=== PATIENT | female | born 1990 | race Two or more races ===

== ENCOUNTER 2024-01-28 05:54 | Emergency (ER) | payer MEDICAID, OTHER ==
[~2024-01-28] VITALS: Ht 165.1 cm; Wt 119.2 kg
[2024-01-28 06:33] LABS: Basophils # (auto) 0.1 10 ^3/uL (0-0.2); Eosinophils # (auto) 0.1 10 ^3/uL (0-0.8); Eosinophils % (auto) 1.4 % (0.0-7.0); Hemoglobin 13.8 g/dL (12.2-16.2); Lymphocytes # (auto) 2.9 10 ^3/uL (0.4-5.4); Lymphocytes % (auto) 29.1 % (10.0-50.0); Mean Corpuscular Hemoglobin 30.2 pg (28.0-32.0); Mean Corpuscular Hgb Conc. 33.7 g/dL (32.0-36.0); Mean Corpuscular Volume 89.7 fL (80.0-100.0); Monocytes # (auto) 0.7 10 ^3/uL (0-1.3); Monocytes % (auto) 7.4 % (0.0-12.0); Neutrophils # (auto) 6.2 10 ^3/uL (1.6-8.6); Neutrophils % (auto) 61.1 % (37.0-80.0); Platelet Count (auto) 342 10^3/uL (140-450); Red Blood Cells 4.57 10^6/uL (4.0-5.20); Red Cell Distribution Width 13.4 % (11.8-14.3); White Blood Cell 10.1 10^3/uL (4.4-10.8)
[2024-01-28 07:02] LABS: Alanine Aminotransferase 18 U/L (7-40); Alkaline Phosphatase 97 U/L (46-116); Anion Gap 7 (5-15); Aspartate Aminotransferase 11 U/L (13-40); BUN/Creatinine Ratio 14.1 (10.0-20.0); Blood Urea Nitrogen 11 mg/dL (9-23); Calcium 9.6 mg/dL (8.7-10.4); Carbon Dioxide 25 mmol/L (20-30); Chloride 105 mmol/L (98-107); Glucose 109 mg/dL (74-106); Potassium 3.8 mmol/L (3.5-5.1); Sodium 137 mmol/L (136-145)
[2024-01-28 07:03] LABS: Albumin 4.9 g/dL (3.2-4.8); Bilirubin, Total 0.4 mg/dL (0.2-1.0); Total Protein 7.9 g/dL (5.7-8.2)
[2024-01-28] MEDS: ASPirin 325 MG TAB PO ONE (07:20)
[2024-01-28 07:21] VITALS: PULSE 80; RESP 15; O2SAT 98
[2024-01-28 08:36] LABS: Urine Bacteria FEW /hpf (None Seen); Urine Blood Negative /uL (Negative); Urine Protein, UAD Negative (Negative); Urine Urobilinogen Normal (Negative); Urine WBC 1 /hpf (0 - 5); Urine pH 5.5 (5.0-9.0)
[2024-01-28 08:37] LABS: Urine Clarity Hazy (Clear); Urine Color Light-Yellow (Yellow)
[2024-01-28 09:51] VITALS: TEMP 98.4
[2024-01-28 10:05] VITALS: BP 151/55; PULSE 95; RESP 16; O2SAT 99
[2024-01-28] MEDS: ONDANSETRON HCL 4 MG/2 ML VIAL IV ONE (11:06)
[2024-01-28] MEDS: MORPHINE SULFATE 4 MG/ML SYR/VIAL IV ONE (11:06)
[2024-01-28] MEDS: NITROGLYCERIN 0.4 MG SL TAB SL ONE (11:07)
== END 2024-01-28 11:39 | disposition left against medical advice (07) ==
LOC: ER 05:54
DX: R07.89 Other chest pain (principal); R42 Dizziness and giddiness
CPT/HCPCS: 36415; 71045; 80053; 81001; 84484; 85025; 93005

== ENCOUNTER 2024-04-18 11:20 | Inpatient (IN) | payer MEDICAID ==
[~2024-04-18] VITALS: Ht 165.1 cm; Wt 111.9 kg
--- NOTE | 2024-04-18 12:01 | DVH ---
CHEST RADIOGRAPH Indication:CP Technique: Single frontal view of the chest was obtained COMPARISON: XY CHEST PORTABLE on DOS: 01/28/24 FINDINGS: Lines and Tubes: None Lungs: Clear Pleura: No effusion. No pneumothorax. Cardiomediastinal contours: Unremarkable Bones: Unremarkable IMPRESSION: No acute disease.
[2024-04-18 12:14] LABS: Basophils # (auto) 0.1 10 ^3/uL (0-0.2); Basophils % (auto) 0.9 % (0.0-2.0); Eosinophils # (auto) 0 10 ^3/uL (0-0.8); Eosinophils % (auto) 0.3 % (0.0-7.0); Hematocrit 43.9 % (36.0-46.0); Hemoglobin 14.8 g/dL (12.2-16.2); Lymphocytes # (auto) 1.7 10 ^3/uL (0.4-5.4); Lymphocytes % (auto) 21.2 % (10.0-50.0); Mean Corpuscular Hemoglobin 30.3 pg (28.0-32.0); Mean Corpuscular Hgb Conc. 33.6 g/dL (32.0-36.0); Mean Corpuscular Volume 90.1 fL (80.0-100.0); Monocytes # (auto) 0.6 10 ^3/uL (0-1.3); Monocytes % (auto) 7.7 % (0.0-12.0); Neutrophils # (auto) 5.6 10 ^3/uL (1.6-8.6); Neutrophils % (auto) 69.9 % (37.0-80.0); Nucleated Red Blood Cells % 0.1 %; Platelet Count (auto) 407 10^3/uL (140-450); Red Blood Cells 4.87 10^6/uL (4.0-5.20); Red Cell Distribution Width 12.7 % (11.8-14.3); White Blood Cell 7.9 10^3/uL (4.4-10.8)
--- NOTE | 2024-04-18 12:16 | ED.PDOC ---
HPI Comments 34y F who presents to the ED for chief complaint of chest pain. Pt states she has been having L sided chest pain since Monday, 2 days prior. Pt states her pain is constant, achy and burning in nature, rating the pain 9/10, with pain radiating to the back, with no associated exacerbating or relieving factors. Pt otherwise has associated shortness of breath but denies diaphoresis, palpitations, nausea, vomiting, fever, cough, chills, headache or dizziness. Pt has noted stable vitals in the ED with noted elevated BP of 151/89 in the ED. Pt otherwise denies any other symptoms at this time. 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 Hx Family History Family History: Reviewed,noncontributory to illness Social History Smoker: Non-Smoker Alcohol: Denies ETOH Use Drugs: Denies Drug Use Lives In: Home Constitutional: denies: chills, diaphoresis, fatigue, fever, malaise, sweats, weakness, others EENTM: denies: blurred vision, double vision, ear bleeding, ear discharge, ear drainage, ear pain, ear ringing, eye pain, eye redness, hearing loss, mouth pain, mouth swelling, nasal discharge, nose bleeding, nose congestion, nose pain, photophobia, tearing, throat pain, throat swelling, voice changes, others Respiratory: reports: shortness of breath; denies: cough, hemoptysis, orthopnea, SOB at rest, SOB with excertion, stridor, wheezing, others Cardiovascular: reports: chest pain; denies: dizzy spells, diaphoresis, Dyspnea on exertion, edema, irregular heart beat, left arm pain, lightheadedness, palpitations, PND, syncope, others Gastrointestinal: reports: nausea; denies: abdomen distended, abdominal pain, blood streaked bowels, constipated, diarrhea, dysphagia, difficulty swallowing, hematemesis, melena, poor appetite, poor fluid intake, rectal bleeding, rectal pain, vomiting, others Genitourinary: denies: abnormal vagina bleeding, burning, dyspareunia, dysuria, flank pain, frequency, hematuria, incontinence, pain, , vagina discharge , urgency, others Neurological: denies: dizziness, fainting, headache, left sided numbness, left sided weakness, numbness, paresthesia, pre-existing deficit, right sided numbness, right sided weakness, seizure, speech problems, tingling, tremors, weakness, others Musculoskeletal: denies: back pain, gout, joint pain, joint swelling, muscle pain, muscle stiffness, neck pain, others Integumetry: denies: bruises, change in color, change in hair/nails, dryness, laceration, lesions, lumps, rash, wounds, others Allergic/Immunocompromised: denies: Difficulty Healing, Frequent Infections, Hives, Itching, others Hematologic/Lymphatic: denies: anemia, blood clots, easy bleeding, easy bruising, swollen glands, others Endocrine: denies: excessive hunger, excessive sweating, excessive thirst, excessive urination, flushing, intolerance to cold, intolerance to heat, unexplained weight gain, unexplained weight loss, others Psychiatric: denies: anxiety, bipolar disorder, depression, hopeless, panic di sorder, schizophrenia, sleepless, suicidal, others All Other Systems: Reviewed and Negative Physical Exam General Appearance: Moderate Distress HEENT: Normal ENT Inspection, Pharynx Normal, TMs Normal Neck: Full Range of Motion, Non-Tender, Normal, Normal Inspection Respiratory: Chest Non-Tender, Lungs Clear, No Accessory Muscle Use, No Respiratory Distress, Normal Breath Sounds Cardiovascular: No Edema, No JVD, No Murmur, No Gallop, Normal Peripheral Pulses, Regular Rate/Rhythm Breast Exam: Deferred Gastrointestinal: No Organomegaly, Non Tender, No Pulsatile Mass, Normal Bowel Sounds, Soft Genitalia: Deferred Pelvic: Deferred Rectal: Deferred Extremities: No calf tenderness, Normal capillary refill, Normal inspection, Normal range of motion, Non-tender, No pedal edema Musculoskeletal : Apperance: Normal Neurologic: Alert, customs manager II-XII nml as Tested, No Motor Deficits, Normal Affect, Normal Mood, No Sensory Deficits Cerebellar Function: Normal Reflexes: Normal Skin: Dry, Normal Color, Warm Peripheral Pulses: 3+ Radial (R), 3+ Radial (L) Lymphatic: No Adenopathy Was a procedure done? Was a procedure done?: No CP Differential Dx Differential Diagnosis: A-fib, A-Flutter, Angina, Anxiety / Panic Attack, Atrial Dysrhythmia, Electrolyte Disorder, [place], PVC's Differential Diagnosis: HTN Essential, HTN Accelerated Differential Diagnosis: Angina, Chest Wall Pain, Pericarditis X-Ray, Labs, Meds, VS Vital Signs Date Time Temp Pulse Resp B/P (MAP) Pulse Ox O2 Delivery O2 Flow Rate FiO2 04/18/24 11:29 93 04/18/24 11:24 99.1 91 19 151/89 (109) 95 Lab Test 04/18/24 11:35 04/18/24 11:34 Range/Units Urine Color Pending Urine Clarity Pending Urine pH Pending Urine Specific [place] Pending Urine Protein Pending Urine Ketones Pending Urine Blood Pending Urine Nitrite Pending Urine Bilirubin Pending Urine Urobilinogen Pending Urine Leukocyte Esterase Pending Urine RBC Pending Urine WBC Pending Urine Squamous Epithelial Cells Pending Urine Bacteria Pending Urine Glucose Pending White Blood Count 7.9 4.4-10.8 10^3/uL Red Blood Count 4.87 4.0-5.20 10^6/uL Hemoglobin 14.8 12.2-16.2 g/dL Hematocrit 43.9 36.0-46.0 % Mean Corpuscular Volume 90.1 80.0-100.0 fL Mean Corpuscular Hemoglobin 30.3 28.0-32.0 pg Mean Corpuscular Hemoglobin Concent 33.6 32.0-36.0 g/dL Red Cell Distribution Width 12.7 11.8-14.3 % Platelet Count 407 140-450 10^3/uL Mean Platelet Volume 8.3 6.9-10.8 fL Neutrophils (%) (Auto) 69.9 37.0-80.0 % Lymphocytes (%) (Auto) 21.2 10.0-50.0 % Monocytes (%) (Auto) 7.7 0.0-12.0 % Eosinophils (%) (Auto) 0.3 0.0-7.0 % Basophils (%) (Auto) 0.9 0.0-2.0 % Neutrophils # (Auto) 5.6 1.6-8.6 10 ^3/uL Lymphocytes # (Auto) 1.7 0.4-5.4 10 ^3/uL Monocytes # (Auto) 0.6 0-1.3 10 ^3/uL Eosinophils # (Auto) 0 0-0.8 10 ^3/uL Basophils # (Auto) 0.1 0-0.2 10 ^3/uL Nucleated Red Blood Cells 0.1 % D-Dimer, Quantitative Pending Sodium Level Pending Potassium Level Pending Chloride Level Pending Carbon Dioxide Level Pending Anion Gap Pending Blood Urea Nitrogen Pending Creatinine Pending Glomerular Filtration Rate Calc Pending BUN/Creatinine Ratio Pending Serum Glucose Pending Calcium Level Pending Total Bilirubin Pending Aspartate Amino Transferase (AST) Pending Alanine Aminotransferase (ALT) Pending Alkaline Phosphatase Pending Troponin I High Sensitivity Pending Total Protein Pending Albumin Pending CHEST RADIOGRAPH IMPRESSION: No acute disease. Patient alert. Complaining of chest pain. Radiating to the neck. Vitals stable. Answering questions pain Chest x-ray reviewed does not show any acute changes. EKG reviewed does not show any acute changes. Continues to have chest pain. Was given aspirin. Was given nitro. Echocardiogram. Possible mitral valve disease. Explained to the patient. Time of 1ST Reevaluation: 12:40 Reevaluation 1ST: Unchanged Patient Education/Counseling: Diagnosis, Treatment Family Education/Counseling: No Family Present Departure 1 Departure Time of Disposition: 12:33 Impression: Primary Impression: Chest pain of unknown etiology Disposition: ADMITTED INPATIENT Admit to: Med Surg Condition: Guarded Critical Care Note Critical Care Time?: No Stability Stability form required: No Heart Score Heart Score: Heart Score Response (Comments) Value History Slightly Suspicious 0 EKG Normal 0 Age <45 0 Risk Factors No known risk factors 0 Troponin Normal limit 0 Total 0 I personally scribed for FATIMAH DOUGLAS MD ([email or web address]) on 04/18/24 at 12:16. Electronically submitted by Marybeth Alex ([email or web address]). FATIMAH DOUGLAS MD Apr 18, 2024 12:16
[2024-04-18 12:20] LABS: Urine WBC None Seen /hpf (0 - 5)
[2024-04-18 12:53] LABS: Urine Bacteria FEW /hpf (None Seen); Urine Blood Negative /uL (Negative); Urine Clarity Clear (Clear); Urine Protein, UAD Negative (Negative); Urine Specific Gravity 1.004 (1.001-1.035); Urine Urobilinogen Normal (Negative); Urine pH 5.5 (5.0-9.0)
[2024-04-18 13:01] LABS: Urine Color STRAW (Yellow)
[2024-04-18 13:02] LABS: Alanine Aminotransferase 34 U/L (7-40); Albumin 5.5 g/dL (3.2-4.8); Alkaline Phosphatase 97 U/L (46-116); Anion Gap 7 (5-15); Aspartate Aminotransferase 19 U/L (13-40); Bilirubin, Total 0.5 mg/dL (0.2-1.0); Calcium 10.4 mg/dL (8.7-10.4); Carbon Dioxide 27 mmol/L (20-31); Chloride 104 mmol/L (98-107); Glucose 99 mg/dL (74-106); Potassium 3.9 mmol/L (3.5-5.1); Sodium 138 mmol/L (136-145); Total Protein 8.8 g/dL (5.7-8.2)
[2024-04-18 13:09] LABS: BUN/Creatinine Ratio 6.6 (10.0-20.0); Blood Urea Nitrogen < 5 mg/dL (9-23)
[2024-04-18 18:21] VITALS: BP 153/56; PULSE 78; RESP 16; TEMP 97.9; O2SAT 98
--- NOTE | 2024-04-18 18:44 | ECG ---
[facility] Test Date: 2024-04-18 Test Time: 11:27:22 Pat Name: YESSI KASPER Department: ED Room: Gender: F Health Promotion Officer: TANIA : 1990 Requested By: FATIMAH DOUGLAS Order Number: [id number] Reading MD: Izaiah Schumacher Measurements Intervals [place] Rate: 93 P: 16 NC: 160 QRS: 89 QRSD: 101 T: -25 QT: 353 QTc: 440 Interpretive Statements Sinus rhythm RSR' in V1 or V2, right VCD or RVH Electronically Signed On 04-19-2024 9:44:16 PDT by Izaiah Schumacher Please click the below link to view image of tracing.
[2024-04-18] MEDS ORDERED: MORPHINE SULFATE INJ 2 MG/ml SYRG IV PRN ×2 (21:45)
[2024-04-18] MEDS ORDERED: ONDANSETRON HCL 4 MG/2 ML VIAL IV PRN (21:45)
[2024-04-18] MEDS ORDERED: NITROGLYCERIN 0.4 MG SL TAB SL PRN (21:45)
[2024-04-18] MEDS ORDERED: ACETAMINOPHEN 325 MG TAB PO PRN (21:45)
[2024-04-18] MEDS ORDERED: SODIUM CHLOR 0.9% PF (SALINE LOCK) 10ML VIAL/SYR IV SCH (22:00)
[2024-04-18] MEDS ORDERED: cefTRIAXone 1GM/50ML D5W 50 ML IV SCH (23:00)
--- NOTE | 2024-04-18 23:12 | DVHHPRES ---
History of Present Illness Resident Creating Document: CATHRYN BRONSON RESIDENT History of Present Illness Yanira Perera is 34 years old female with no significant PMH presented to the ED with the complaints of diffuse burning chest pain and bilateral flank pain. Patient reports she has been diagnosed with a UTI 5 days back, her PCP prescribed nitrofurantoin but for past 2 days, she has been having flank pain with mild fevers and sweating. For past 2 days she also experiencing burning chest pain all over the chest and upper arms. My assessment patient denies nausea, vomiting, diarrhea, difficulty breathing and other associated symptoms. Past Medical History Denies Past Surgical History: None Family History: None Past Social History lives at home with the family. Denies smoking, alcohol and other drug abuse Review of Systems Constitutional: No: Fever, Chills, Sweats, Weakness, Malaise, Other Eyes: No: Pain, Vision change, Conjunctivae inflammation, Eyelid inflammation, Other, Redness ENT: No: Ear pain, Ear discharge, Nose pain, Nose discharge, Nose congestion, Mouth pain, Mouth swelling, Throat pain, Throat swelling, Other Respiratory: No: Cough, Dry, Shortness of breath, SOB with excertion, Wheezing, Hemoptysis, Pleuritic Pain, Sputum, Wheezing, Other Cardiovascular: Chest Pain Gastrointestinal: No: Nausea, Vomiting, Abdominal Pain, Diarrhea, Constipation, Melena, Hematochezia, Other Genitourinary: Dysuria, Other (Flank pain) Musculoskeletal: shoulder pain Skin: No: Rash, Lesions, Jaundice, Bruising, Other Neurological: No: Weakness, Numbness, Incoordination, Change in speech, Confusion, Seizures, Other Allergies: Coded Allergies: NO KNOWN ALLERGIES (Unverified , 01/28/24) Medications Current Medications Medications Dose Ordered Sig/Diandra Route Start Time Stop Time Status Last Admin Dose Admin Sodium Chloride 10 ml Q8HR IV 04/18/24 22:00 Acetaminophen 325 mg Q4HP PRN PO 04/18/24 21:45 Ondansetron HCl 4 mg Q4HP PRN IV 04/18/24 21:45 Morphine Sulfate 2 mg Q4HPRN PRN IV 04/18/24 21:45 Nitroglycerin 0.4 mg Q5MINP PRN SL 04/18/24 21:45 Morphine Sulfate 2 mg Q30M PRN IV 04/18/24 21:45 Exam Vital Signs Vital Signs Date Time Temp Pulse Resp B/P (MAP) Pulse Ox O2 Delivery O2 Flow Rate FiO2 04/18/24 18:21 78 16 98 Room Air 04/18/24 18:21 97.9 153/56 (88) 97.9 04/18/24 14:47 0 21 Exam Pt is lying on bed General Appearance: Alert, Oriented X3, Cooperative, Not in acute distress HEENT: Atraumatic, Mucous membranes moist/pink Respiratory: Clear to auscultation, Normal air movement, No added sounds Cardiovascular: Regular rate, Normal S1, Normal S2, No murmurs Abdominal: Active bowel sounds, Soft, no distention, no tenderness : Bilateral flank tenderness Extremities: No edema, Normal pulses, No tenderness/swelling Skin: No Significant rash, except past surgical scars Neuro: Normal speech, sensorimotor deficits none Psych/Mental Status: Mental status NL, Mood NL Nurse was there as sharperone during examination Labs/Xrays Labs Test 04/18/24 12:52 04/18/24 11:35 04/18/24 11:34 Range/Units Troponin I High Sensitivity < 3 L </=34 ng/L Beta HCG, Quantitative 0.1 L 1.5-4.2 mIU/mL Urine Color Straw Yellow Urine Clarity Clear Clear Urine pH 5.5 5.0-9.0 Urine Specific [place] 1.004 1.001-1.035 Urine Protein Negative Negative Urine Ketones 1+ H Negative Urine Blood Negative Negative /uL Urine Nitrite Negative Negative Urine Bilirubin Negative Negative Urine Urobilinogen Normal Negative mg/dL Urine Leukocyte Esterase Negative Negative /uL Urine RBC <1 0 - 4 /hpf Urine WBC None seen 0 - 5 /hpf Urine Squamous Epithelial Cells Few <5 /hpf Urine Bacteria Few H None Seen /hpf Urine Glucose Normal Normal mg/dL White Blood Count 7.9 4.4-10.8 10^3/uL Red Blood Count 4.87 4.0-5.20 10^6/uL Hemoglobin 14.8 12.2-16.2 g/dL Hematocrit 43.9 36.0-46.0 % Mean Corpuscular Volume 90.1 80.0-100.0 fL Mean Corpuscular Hemoglobin 30.3 28.0-32.0 pg Mean Corpuscular Hemoglobin Concent 33.6 32.0-36.0 g/dL Red Cell Distribution Width 12.7 11.8-14.3 % Platelet Count 407 140-450 10^3/uL Mean Platelet Volume 8.3 6.9-10.8 fL Neutrophils (%) (Auto) 69.9 37.0-80.0 % Lymphocytes (%) (Auto) 21.2 10.0-50.0 % Monocytes (%) (Auto) 7.7 0.0-12.0 % Eosinophils (%) (Auto) 0.3 0.0-7.0 % Basophils (%) (Auto) 0.9 0.0-2.0 % Neutrophils # (Auto) 5.6 1.6-8.6 10 ^3/uL Lymphocytes # (Auto) 1.7 0.4-5.4 10 ^3/uL Monocytes # (Auto) 0.6 0-1.3 10 ^3/uL Eosinophils # (Auto) 0 0-0.8 10 ^3/uL Basophils # (Auto) 0.1 0-0.2 10 ^3/uL Nucleated Red Blood Cells 0.1 % D-Dimer, Quantitative < 0.19 0.0-0.49 mg/L FEU Sodium Level 138 136-145 mmol/L Potassium Level 3.9 3.5-5.1 mmol/L Chloride Level 104 98-107 mmol/L Carbon Dioxide Level 27 20-31 mmol/L Anion Gap 7 5-15 Blood Urea Nitrogen < 5 L 9-23 mg/dL Creatinine 0.76 0.550-1.02 mg/dL Glomerular Filtration Rate Calc 104 >90 mL/min BUN/Creatinine Ratio 6.6 L 10.0-20.0 Serum Glucose 99 74-106 mg/dL Calcium Level 10.4 8.7-10.4 mg/dL Total Bilirubin 0.5 0.2-1.0 mg/dL Aspartate Amino Transferase (AST) 19 13-40 U/L Alanine Aminotransferase (ALT) 34 7-40 U/L Alkaline Phosphatase 97 46-116 U/L Total Protein 8.8 H 5.7-8.2 g/dL Albumin 5.5 H 3.2-4.8 g/dL Assessment/Plan Assessment/Plan # ? Acute Pyelonephritis -currently on Rocephin -UA is negative -planning to do a CT abdominal pelvis -urine culture ordered # chest pain ruled out ACS # likely musculoskeletal chest pain -pain management as needed -troponins x3 were negative -reviewed EKG Regular diet no gi ppx No VTE PPX as patient is ambulatory Goals of care discussed with the patient for more than 27 minutes: Full code st atus Case discussed with Dr. Greenberg, patient and nurse Plan discussed with: Patient, Other (RN) My Orders Orders - CATHRYN BRONSON RESIDENT Procedure Category Date Status Time Admit ADMIT 04/18/24 Transmitted 21:38 Allergies ALTAGRACIA 04/18/24 In Process 21:38 Code Status CODE 04/18/24 Transmitted 21:38 Sodium Chloride Lock PHA 04/18/24 In Process (Saline Lock Ns) 22:00 Acetaminophen Tablet PHA 04/18/24 In Process (Tylenol Tablet) 21:45 Ondansetron Hcl PHA 04/18/24 In Process (Zofran) 21:45 Complete Blood Count LAB 04/19/24 Verified 04:00 Comprehensive LAB 04/19/24 Verified Metabolic Panel 04:00 Morphine Sulfate PHA 04/18/24 In Process Injection 21:45 Nitroglycerin PHA 04/18/24 In Process Sublingual (Ntrostat 21:45 Morphine Sulfate PHA 04/18/24 In Process Injection 21:45 Oxygen By Nasal RT 04/18/24 Transmitted Cannula 21:38 Stat Ekg For Chest ALTAGRACIA 04/18/24 In Process Pain 21:38 Notify Of Changes [facility] 04/18/24 In Process From Base 21:38 Car Detailer For [facility] 04/18/24 In Process 24 Hours 21:38 Emergency Dysrhythmia [facility] 04/18/24 In Process Protocol 21:38 Rhythm Strips Once [facility] 04/18/24 In Process Every Shift 21:38 Urine Bacterial RHONDA 04/18/24 Logged Culture 21:38 Hemoglobin A1c LAB 04/18/24 Logged 22:50 Drug Screen LAB 04/18/24 Logged 22:50 Vitamin D, 25-Hydroxy LAB 04/18/24 Logged 22:50 Vitamin B12 LAB 04/18/24 Logged 22:50 Thyroid Stimulating LAB 04/18/24 Logged Hormone 22:50 Ceftriaxone 1gm/50ml PHA 04/18/24 Logged D5w (Rocephin) 23:00 Date of Service: Apr 18, 2024 Billing Provider: LISS GREENBERG MD Common Visit Codes: [id number] INP/OBS CARE (HIGH) AUDIE,KHAJA RESIDENT Apr 18, 2024 23:12 LISS GREENBERG MD Apr 19, 2024 10:22
--- NOTE | 2024-04-19 22:22 | DVHDSRES ---
Discharge Summary Date of Admission Resident Creating Document: CATHRYN BRONSON RESIDENT Apr 18, 2024 at 21:38 Date of Discharge: Apr 18, 2024 Admitting Diagnosis Flank pain Labs/Diagnostic Data: Laboratory Results Test 04/18/24 12:52 04/18/24 11:35 04/18/24 11:34 Troponin I High Sensitivity < 3 ng/L (</=34) Beta HCG, Quantitative 0.1 mIU/mL (1.5-4.2) Urine Color Straw (Yellow) Urine Clarity Clear (Clear) Urine pH 5.5 (5.0-9.0) Urine Specific [place] 1.004 (1.001-1.035) Urine Protein Negative (Negative) Urine Ketones 1+ (Negative) Urine Blood Negative /uL (Negative) Urine Nitrite Negative (Negative) Urine Bilirubin Negative (Negative) Urine Urobilinogen Normal mg/dL (Negative) Urine Leukocyte Esterase Negative /uL (Negative) Urine RBC <1 /hpf (0 - 4) Urine WBC None seen /hpf (0 - 5) Urine Squamous Epithelial Cells Few /hpf (<5) Urine Bacteria Few /hpf (None Seen) Urine Glucose Normal mg/dL (Normal) White Blood Count 7.9 10^3/uL (4.4-10.8) Red Blood Count 4.87 10^6/uL (4.0-5.20) Hemoglobin 14.8 g/dL (12.2-16.2) Hematocrit 43.9 % (36.0-46.0) Mean Corpuscular Volume 90.1 fL (80.0-100.0) Mean Corpuscular Hemoglobin 30.3 pg (28.0-32.0) Mean Corpuscular Hemoglobin Concent 33.6 g/dL (32.0-36.0) Red Cell Distribution Width 12.7 % (11.8-14.3) Platelet Count 407 10^3/uL (140-450) Mean Platelet Volume 8.3 fL (6.9-10.8) Neutrophils (%) (Auto) 69.9 % (37.0-80.0) Lymphocytes (%) (Auto) 21.2 % (10.0-50.0) Monocytes (%) (Auto) 7.7 % (0.0-12.0) Eosinophils (%) (Auto) 0.3 % (0.0-7.0) Basophils (%) (Auto) 0.9 % (0.0-2.0) Neutrophils # (Auto) 5.6 10 ^3/uL (1.6-8.6) Lymphocytes # (Auto) 1.7 10 ^3/uL (0.4-5.4) Monocytes # (Auto) 0.6 10 ^3/uL (0-1.3) Eosinophils # (Auto) 0 10 ^3/uL (0-0.8) Basophils # (Auto) 0.1 10 ^3/uL (0-0.2) Nucleated Red Blood Cells 0.1 % D-Dimer, Quantitative < 0.19 mg/L FEU (0.0-0.49) Sodium Level 138 mmol/L (136-145) Potassium Level 3.9 mmol/L (3.5-5.1) Chloride Level 104 mmol/L (98-107) Carbon Dioxide Level 27 mmol/L (20-31) Anion Gap 7 (5-15) Blood Urea Nitrogen < 5 mg/dL (9-23) Creatinine 0.76 mg/dL (0.550-1.02) Glomerular Filtration Rate Calc 104 mL/min (>90) BUN/Creatinine Ratio 6.6 (10.0-20.0) Serum Glucose 99 mg/dL (74-106) Calcium Level 10.4 mg/dL (8.7-10.4) Total Bilirubin 0.5 mg/dL (0.2-1.0) Aspartate Amino Transferase (AST) 19 U/L (13-40) Alanine Aminotransferase (ALT) 34 U/L (7-40) Alkaline Phosphatase 97 U/L (46-116) Total Protein 8.8 g/dL (5.7-8.2) Albumin 5.5 g/dL (3.2-4.8) Other Laboratory Tests 04/18/24 11:34 Brief Hx & Hospital Course: Yanira Perera is 34 years old female with no significant PMH presented to the ED with the complaints of diffuse burning chest pain and bilateral flank pain. Patient reports she has been diagnosed with a UTI 5 days back, her PCP prescribed nitrofurantoin but for past 2 days, she has been having flank pain with mild fevers and sweating. For past 2 days she also experiencing burning chest pain all over the chest and upper arms. My assessment patient denies nausea, vomiting, diarrhea, difficulty breathing and other associated symptoms. The patient was advised to admit and we kept her on Rocephin and ordered few more tests, but patient do not want to stay in the hospital, want to leave against medical advice despite explaining risks and benefits of leaving AMA.Patient encouraged to stay for further treatment. Patient made verbalized understanding, Patient encouraged to return to the ER if symptoms do not improve or worsen. Condition at Discharge: Undetermined Final Diagnosis/Problems List # ? Acute Pyelonephritis # chest pain ruled out ACS # likely musculoskeletal chest pain Discharge Disposition: AMA Discharge Statement: "Patient was advised to return to the ER or call 911 if any headaches, dizziness, shortness of breath, chest pain, abdominal pain, bleeding, fevers, or worsening of medical condition. Patient was counseled about treatment plan, medications, possible side effects, patientverbalized understanding. All questions were answered to the best of my ability. This discharge took greater then 30 minutes in planning, reviewing documentation, counseling the patient, and discussing with other team members." ASSESSMENT ASSESSMENT Assessment Date of Service: Apr 18, 2024 Billing Provider: LISS AGUSTIN MD Common Visit Codes: 61032-MHT/OBS DISCH DAY <30MIN CATHRYN BRONSON RESIDENT Apr 19, 2024 22:22 LISS AGUSTIN MD Apr 20, 2024 12:52
== END 2024-04-18 23:03 | disposition left against medical advice (07) | DRG 463 ==
LOC: ER 11:30 → OVERFLOW 21:38 → ER 21:44
PROVIDERS: ATTEND Emergency Medicine
DX: N10 Acute pyelonephritis (principal); R07.89 Other chest pain; Z53.29 Procedure and treatment not carried out because of patient's decision for other reasons
CPT/HCPCS: 36415; 71045; 80053; 81001; 84484; 84702; 85025; 85379; 93005; G0378

== ENCOUNTER 2024-08-04 22:46 | Emergency (ER) | payer MEDICAID ==
[~2024-08-04] VITALS: Ht 165.1 cm; Wt 108.0 kg
[2024-08-04] MEDS ORDERED: ALBUAER3 IN (23:07)
[2024-08-04] MEDS ORDERED: MOME50SP11 (23:07)
[2024-08-04] MEDS ORDERED: BENZ200C64 PO (23:07)
--- NOTE | 2024-08-04 23:07 | ED.PDOC ---
History of Present Illness HPI Comments cough for 3 weeks. pt just finished zpak and is not better. she has chest pain with coughing, postnasal drips. 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 Hx Family History Family History: Reviewed,noncontributory to illness Social History Smoker: Non-Smoker Alcohol: Denies ETOH Use Drugs: Denies Drug Use Lives In: Home Constitutional: denies: chills, diaphoresis, fatigue, fever, malaise, sweats, weakness, others EENTM: reports: nasal discharge, nose congestion; denies: blurred vision, double vision, ear bleeding, ear discharge, ear drainage, ear pain, ear ringing, eye pain, eye redness, hearing loss, mouth pain, mouth swelling, nose bleeding, nose pain, photophobia, tearing, throat pain, throat swelling, voice changes, others Respiratory: reports: cough; denies: hemoptysis, orthopnea, SOB at rest, shortness of breath, SOB with excertion, stridor, wheezing, others Cardiovascular: reports: chest pain; denies: dizzy spells, diaphoresis, Dyspnea on exertion, edema, irregular heart beat, left arm pain, lightheadedness, palpitations, PND, syncope, others Gastrointestinal: denies: abdomen distended, abdominal pain, blood streaked bowels, constipated, diarrhea, dysphagia, difficulty swallowing, hematemesis, melena, nausea, poor appetite, poor fluid intake, rectal bleeding, rectal pain, vomiting, others Genitourinary: denies: abnormal vagina bleeding, burning, dyspareunia, dysuria, flank pain, frequency, hematuria, incontinence, pain, , vagina discharge, urgency, others Neurological: denies: dizziness, fainting, headache, left sided numbness, left sided weakness, numbness, paresthesia, pre-existing deficit, right sided numbness, right sided weakness, seizure, speech problems, tingling, tremors, weakness, others Musculoskeletal: denies: back pain, gout, joint pain, joint swelling, muscle pain, muscle stiffness, neck pain, others Integumetry: denies: bruises, change in color, change in hair/nails, dryness, laceration, lesions, lumps, rash, wounds, others Allergic/Immunocompromised: denies: Difficulty Healing, Frequent Infections, Hives, Itching, others Hematologic/Lymphatic: denies: anemia, blood clots, easy bleeding, easy bruising, swollen glands, others Endocrine: denies: excessive hunger, excessive sweating, excessive thirst, excessive urination, flushing, intolerance to cold, intolerance to heat, unexplained weight gain, unexplained weight loss, others Psychiatric: denies: anxiety, bipolar disorder, depression, hopeless, panic disorder, schizophrenia, sleepless, suicidal, others All Other Systems: Reviewed and Negative Physical Exam General Appearance: No Apparent Distress, Normal HEENT: Normal ENT Inspection, Pharynx Normal, TMs Normal, Other (clear postnasal drips) Neck: Full Range of Motion, Non-Tender, Normal, Normal Inspection Respiratory: Chest Non-Tender, Lungs Clear, No Accessory Muscle Use, No Respiratory Distress, Normal Breath Sounds Cardiovascular: No Edema, No JVD, No Murmur, No Gallop, Normal Peripheral Pulses, Regular Rate/Rhythm Breast Exam: Deferred Gastrointestinal: No Organomegaly, Non Tender, No Pulsatile Mass, Normal Bowel Sounds, Soft Genitalia: Deferred Pelvic: Deferred Rectal: Deferred Extremities: No calf tenderness, Normal capillary refill, Normal inspection, Normal range of motion, Non-tender, No pedal edema Musculoskeletal : Apperance: Normal Neurologic: Alert, 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 Was a procedure done?: No Differential Dx Considerations may include: bronchitis, pneumonia, uri, rhinitis,allergy, viral syndrome Time of 1ST Reevaluation: 23:03 Reevaluation 1ST: Unchanged Patient Education/Counseling: Diagnosis, Treatment, Prognosis, Need For Follow Up Family Education/Counseling: No Family Present Additional Information although pt was diagnosed with bronchitis, she was treated with zpak. she has not improved. her symptoms are consistent with a viral infection. the postnasal drips likely is causing most of her symptoms. she has no active coughing here. even with atypical bacterial infection, zpak should have improve her symptoms. her exam is normal, with normal pulse ox and clear lungs. i will treat her with Nasonex, Tessalon, albuterol. she is stable to follow up with her pcp Departure 1 Departure Time of Disposition: 23:06 Impression: Primary Impression: Viral URI with cough Disposition: HOME / SELF CARE / HOMELESS Condition: Good e-Prescriptions Mometasone Furoate (Nasal) (Nasonex 24Hr) 50 Mcg/Act Spr 50 MCG NA BID PRN, #1 SPRAY Prov: OSITO STAHL MD 08/04/24 Albuterol Sulfate (VENTOLIN MDI) 90 Mcg Ih 90 MCG IN Q6HP PRN, #1 INH Prov: OSITO STAHL MD 08/04/24 Benzonatate (Benzonatate) 200 Mg Cap 1 CAP PO TID, #30 CAP Prov: OSITO STAHL MD 08/04/24 Discharged With: Self Critical Care Note Critical Care Time?: No Stability Stability form required: No OSITO STAHL MD Aug 04, 2024 23:07
[2024-08-04 23:11] VITALS: BP 148/91; PULSE 102; RESP 16; O2SAT 97
[2024-08-05] MEDS ORDERED: ALBU108A5 IN (08:23)
[2024-08-05] MEDS ORDERED: GUAI600T78 PO (08:23)
[2024-08-05] MEDS ORDERED: PRED20TA2 PO (08:23)
[2024-08-05] MEDS ORDERED: PROM1SOL4 PO (08:23)
== END 2024-08-05 03:52 | disposition home or self-care (01) ==
LOC: ER 22:46
DX: J06.9 Acute upper respiratory infection, unspecified (principal); B97.89 Other viral agents as the cause of diseases classified elsewhere; R05.9 Cough, unspecified; R07.89 Other chest pain

== ENCOUNTER 2024-08-05 05:52 | Emergency (ER) | payer MEDICAID ==
[~2024-08-05] VITALS: Ht 165.1 cm; Wt 108.3 kg
[~2024-08-05 05:52] MED LIST: ALBUAER3 IN; BENZ200C64 PO; MOME50SP11
[2024-08-05] MEDS: ALBUTEROL SULF 2.5 MG/0.5ML(0.5%) NEB SOLN NEB ONE (07:05)
[2024-08-05] MEDS: IPRATROPIUM BROM 0.5 MG/2.5ML INH SOL NEB ONE (07:05)
--- NOTE | 2024-08-05 07:06 | ED.PDOC ---
SOB-HPI HPI Comments 34 year female with no pertinent MHx that presents with a chief complaint of a productive cough with white yellow phlegm x4 weeks. symptoms associated with intermittent chills and chest wall pain that is aggravated to with the coughing Was seen at an urgent care one week ago and was prescribed BroMenn and a Z-Bill. Completed the course of antibiotics but continues to endorse a cough that waxes and wanes throughout the day Denies unintentional weight loss Denies persistent chest pain, shortness of breath, leg swelling Denies history of asthma nor any breathing conditions Denies history of pneumonia Denies recent international travel Chief Complaint: Cough Time Seen by MD: 06:24 Reviewed notes: Nurses Notes, Medications, Allergies Information Source: Patient Mode of Arrival: Ambulatory Past Medical History PAST MEDICAL HISTORY: Denies Surgical History: Denies all surgeries TESTER COMPRESSED GASES History: Denies all TESTER COMPRESSED GASES Hx Family History Family History: Reviewed,noncontributory to illness Social History Smoker: Non-Smoker Alcohol: Denies ETOH Use Drugs: Denies Drug Use Lives In: Home All Other Systems: Reviewed and Negative (Per HPI) Physical Exam General Appearance: No Apparent Distress, Normal HEENT: Normal ENT Inspection, Pharynx Normal, TMs Normal Neck: Full Range of Motion, Non-Tender, Normal, Normal Inspection Respiratory: No Accessory Muscle Use, No Respiratory Distress, Wheezing (Course and expiratory wheezes heard bilaterally), Other (Reproducible chest pain on palpation) Cardiovascular: No Edema, No JVD, No Murmur, No Gallop, Normal Peripheral Pulses, Regular Rate/Rhythm Breast Exam: Deferred Gastrointestinal: No Organomegaly, Non Tender, No Pulsatile Mass, Normal Bowel Sounds, Soft Genitalia: Deferred Pelvic: Deferred Rectal: Deferred Extremities: No calf tenderness, Normal capillary refill, Normal inspection, Normal range of motion, Non-tender, No pedal edema Musculoskeletal : Apperance: Normal Neurologic: Alert, 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 Was a procedure done?: No Differential Dx Differential Diagnosis: Asthma, Bronchitis, Pneumonia, URI X-Ray, Labs, Meds, VS Vital Signs Date Time Temp Pulse Resp B/P (MAP) Pulse Ox O2 Delivery O2 Flow Rate FiO2 08/05/24 07:30 98.5 90 16 130/86 (101) 96 98.5 08/05/24 07:06 18 97 Room Air* 0 21 08/05/24 06:34 91 18 99 Room Air 08/05/24 05:55 18 99 Room Air* 0 21 08/05/24 05:55 98.2 91 18 136/87 (103) 99 Current Medications Medications (Trade) Dose Ordered Sig/Diandra Route Start Time Stop Time Status Last Admin Albuterol (Ventolin Medneb) 5 mg ONCE ONCE NEB 08/05/24 07:00 08/05/24 07:01 DC 08/05/24 07:05 Ipratropium [place] (Atrovent Medneb) 0.5 mg ONCE ONCE NEB 08/05/24 07:00 08/05/24 07:01 DC 08/05/24 07:05 X-Ray, Labs, Meds, VS Comment The patient presented to the Emergency Room with an exacerbation of bronchitis/asthma exacerbation and received breathing tx. Chest X-ray w/o signs of pneumonia. No other reversable triggers noted. The patient did not have any risk factors for pulmonary embolus and the signs and symptoms were consistent with an bronchitis w/ asthma exacerbation. The patient had significant improvement after treatments. patient's pulse oximetry is with normal limits and ambulating without difficulty. The patient will be discharged with strict return precautions On reevaluation, patient had symptomatic improvement. Patient is stable for discharge at this time. External notes reviewed. Test results and diagnostic imaging interpreted. All diagnostic findings, discharge care, education and instructions provided Follow-up with PCP in 2 to 3 days Patient verbalized understanding and agreed to treatment plan Vital signs stable, afebrile, no acute distress noted Patient ambulatory with strong steady gait Advised to return precautions for any new or worsening symptoms, return to ER immediately for re-evaluation Patient is aware that the purpose of this visit was for an acute medical emergency requiring emergent stabilization. Chronic conditions, including malignancies have not been ruled out. Patient is instructed to follow up with PCP as directed and discharge instructions for continued care and workup. If unable to arrange follow-up, patient is to return to the emergency department for reassessment. Patient (parent or legal guardian if applicable) was given verbal and written discharge instructions and acknowledges understanding. Time of 1ST Reevaluation: 07:06 Reevaluation 1ST: Unchanged Time of 2ND Reevaluation: 08:00 Reevaluation 2ND: Improved Patient Education/Counseling: Diagnosis, Treatment Family Education/Counseling: Diagnosis, Treatment Departure 1 Departure Time of Disposition: 08:21 Impression: Primary Impression: Bronchitis Disposition: 01 HOME / SELF CARE / HOMELESS Condition: Stable e-Prescriptions Guaifenesin (Mucinex) 600 Mg Tab 1 TAB PO BID for 7 Days, #14 TAB 0 Refills Prov: PAUL GUPTA NP 08/05/24 Promethazine-Dm (Promethazine Dm 6.25-15 mg/5Ml) 1 Pat Pat 5 ML PO TID for 10 Days, #150 ML 0 Refills Prov: PAUL GUPTA NP 08/05/24 Prednisone (Prednisone) 20 Mg Tab 60 MG PO DAILY for 5 Days, #15 TAB 0 Refills Prov: PAUL GUPTA NP 08/05/24 Albuterol Sulfate (Albuterol Sulfate Hfa) 108 Mcg/Act Aer 108 MCG IN Q6HP PRN for 30 Days, #1 AER 0 Refills Prov: PAUL GUPTA NP 08/05/24 Discharged With: Self Critical Care Note Critical Care Time?: No Stability Stability form required: No Heart Score Heart Score: Heart Score Response (Comments) Value History N/A 0 EKG N/A 0 Age N/A 0 Risk Factors N/A 0 Troponin N/A 0 Total 0 PAUL GUPTA NP Aug 05, 2024 07:06
[2024-08-05 07:30] VITALS: BP 130/86; PULSE 90; RESP 16; TEMP 98.5; O2SAT 96
--- NOTE | 2024-08-05 07:55 | [facility] ---
EXAM: XY CHEST TWO VIEWS ROUTINE CLINICAL HISTORY: cough x 4 wks COMPARISON: None TECHNIQUE: Frontal and lateral view of the chest was obtained FINDINGS: Lines and Tubes: None Lungs: No focal consolidation. Pleura: No effusion. No pneumothorax. Cardiomediastinal contours: Unremarkable Bones: No acute osseous abnormality. IMPRESSION: No acute cardiopulmonary disease.
[2024-08-05] MEDS ORDERED: ALBU108A5 IN (08:23)
[2024-08-05] MEDS ORDERED: PROM1SOL4 PO (08:23)
[2024-08-05] MEDS ORDERED: PRED20TA2 PO (08:23)
[2024-08-05] MEDS ORDERED: GUAI600T78 PO (08:23)
== END 2024-08-05 08:30 | disposition home or self-care (01) ==
LOC: ER 05:52
DX: J40 Bronchitis, not specified as acute or chronic (principal); R07.89 Other chest pain
CPT/HCPCS: 71046; 94640